=== PATIENT | female | born 1935 | race Caucasian/White ===

== ENCOUNTER → 2018-07-19 07:39 | Outpatient (CLI) | payer OTHER, SELFPAY ==
[2018-07-19 08:56] LABS: Alanine Aminotransferase 25 IU/L (9-52); Aspartate Aminotransferase 26 IU/L (14-36); Cholesterol 158 mg/dL (140-199); HDL Cholesterol 53 mg/dL (40-60); LDL Cholesterol Calculated 86 mg/dL (<100); Triglycerides 94 mg/dL (35-150)
[2018-07-19 09:29] LABS: TSH w/ Reflex to FT4 1.28 uIU/mL (0.47-4.68)
[2018-07-20 17:53] LABS: Vitamin D 25 Hydroxy (D3) 38.2 ng/mL (30.0-100.0)
== END ==
PROVIDERS: PCP Internal Medicine; Visit Provider Internal Medicine
DX: E78.00 Pure hypercholesterolemia, unspecified (principal); M85.80 Other specified disorders of bone density and structure, unspecified site
CPT/HCPCS: 36415; 80061; 82306; 84443; 84450; 84460

== ENCOUNTER → 2018-08-01 13:08 | Outpatient (CLI) | payer OTHER, SELFPAY ==
--- NOTE | 2018-08-01 | DI.RAD.S_ITS ---
This blank DEXA report has been sent in error by the PACS system. The correct and complete report will be forthcoming in 1-2 days. Thank you for your patience and understanding. Dictated by: Elizabeth Selby MD, PhD on 08/01/2018 at 13:53 Approved by: Elizabeth Selby MD, PhD on 08/01/2018 at 13:53
== END ==
PROVIDERS: PCP Internal Medicine; Visit Provider Internal Medicine
DX: M81.0 Age-related osteoporosis without current pathological fracture (principal); E07.9 Disorder of thyroid, unspecified
CPT/HCPCS: 77080

== ENCOUNTER → 2019-05-16 07:03 | Outpatient (CLI) | payer OTHER, SELFPAY ==
[2019-05-16 08:00] LABS: Add Manual Diff / Slide Review NO; Basophils Absolute Auto 0 /uL (0-100); Basophils Percent Auto 1.2 % (0-2); Eosinophils Absolute Auto 100 /uL (0-450); Eosinophils Percent Auto 4.1 % (2-4); Hematocrit 42.3 % (36-46); Hemoglobin 14.2 g/dL (12.0-16.0); Lymphocytes Absolute Auto 1400 /uL (1100-4500); Lymphocytes Percent Auto 37.8 % (25-40); Mean Corpuscular HGB Conc 33.5 % (30-36); Mean Corpuscular Hemoglobin 31.9 PG (26-34); Mean Corpuscular Volume 95.1 fL (80-100); Monocytes Absolute Auto 300 /uL (0-900); Monocytes Percent Auto 7.4 % (3-14); Neutrophils Absolute Auto 1800 /uL (1500-7000); Neutrophils Percent Auto 49.5 % (50-75); Platelet Count 149 X10^3/uL (150-400); Red Blood Cell Count 4.45 X10^6/uL (4.0-5.2); Red Cell Distribution Width 13.1 % (11.6-14.8); White Blood Cell Count 3.6 X10^3/uL (4.5-11.0)
[2019-05-16 08:15] LABS: B Type Natriuretic Peptide < 100 (<100)
[2019-05-16 08:16] LABS: Alanine Aminotransferase 23 IU/L (9-52); Albumin 3.9 g/dL (3.5-5.0); Albumin Globulin Ratio 1.3 (1.0-2.8); Alkaline Phosphatase 53 U/L (38-126); Aspartate Aminotransferase 25 IU/L (14-36); BUN Creatinine Ratio 31.3 (6-22); Bilirubin Total 0.7 mg/dL (0.2-1.3); Blood Urea Nitrogen 25 mg/dL (7-17); Carbon Dioxide 30 mmol/L (22-32); Chloride 105 mmol/L (98-107); Cholesterol 128 mg/dL (140-199); Estimated Glomerular Filt Rate > 60.0 mL/min (>60); Globulin 2.9 g/dL (1.7-4.1); Glucose 86 mg/dL (80-110); HDL Cholesterol 39 mg/dL (40-60); HEMOLYSIS < 15 (0-50); LDL Cholesterol Calculated 72 mg/dL (<100); Potassium 4.2 mmol/L (3.4-5.1); Sodium 140 mmol/L (137-145); Total Protein 6.8 g/dL (6.3-8.2); Triglycerides 83 mg/dL (35-150)
[2019-05-16 08:29] LABS: Vitamin D 25 Hydroxy (D3) 40.1 ng/mL (30.0-100.0)
[2019-05-16 08:37] LABS: Free T3, Triiodothyronine Free 3.46 pg/mL (2.77-5.27); Free T4, Direct Thyroxine 1.29 ng/dL (0.78-2.19)
[2019-05-16 08:50] LABS: Thyroid Stimulating Hormone 0.83 uIU/mL (0.47-4.68)
[2019-05-16 09:19] LABS: Folate 15.1 ng/mL (2.76-20.0); Vitamin B12 422 pg/mL (239-931)
== END ==
PROVIDERS: PCP Internal Medicine; Visit Provider Internal Medicine
DX: L65.9 Nonscarring hair loss, unspecified (principal); R53.82 Chronic fatigue, unspecified; R00.1 Bradycardia, unspecified; E03.9 Hypothyroidism, unspecified; E78.00 Pure hypercholesterolemia, unspecified
CPT/HCPCS: 36415; 80053; 80061; 82306; 82607; 82746; 83880; 84439; 84443; 84481; 85025

== ENCOUNTER → 2019-10-04 07:51 | Outpatient (CLI) | payer OTHER, SELFPAY ==
[2019-10-04 09:52] LABS: Alanine Aminotransferase 17 IU/L (<35); Aspartate Aminotransferase 27 IU/L (14-36); Blood Urea Nitrogen 20 mg/dL (7-17); Calcium 8.9 mg/dL (8.4-10.2); Carbon Dioxide 28 mmol/L (22-32); Chloride 104 mmol/L (98-107); Cholesterol 146 mg/dL (140-199); Estimated Glomerular Filt Rate > 60.0 mL/min (>60); Glucose 81 mg/dL (80-110); HDL Cholesterol 43 mg/dL (40-60); HEMOLYSIS < 15 (0-50); LDL Cholesterol Calculated 89 mg/dL (<100); Potassium 4.3 mmol/L (3.4-5.1); Sodium 139 mmol/L (137-145); Triglycerides 69 mg/dL (35-150)
[2019-10-04 10:17] LABS: TSH w/ Reflex to FT4 0.85 uIU/mL (0.47-4.68)
== END ==
PROVIDERS: PCP Internal Medicine; Visit Provider Internal Medicine
DX: M81.0 Age-related osteoporosis without current pathological fracture (principal); E78.00 Pure hypercholesterolemia, unspecified; E03.9 Hypothyroidism, unspecified
CPT/HCPCS: 36415; 80048; 80061; 84443; 84450; 84460

== ENCOUNTER → 2020-06-09 07:39 | Outpatient (CLI) | payer OTHER, SELFPAY ==
--- NOTE | 2020-06-09 07:41 | DI.US.S_ITS ---
PROCEDURE: US CAROTID DOPPLER BI INDICATIONS: TIA. TECHNIQUE: Color and pulse Doppler interrogation was performed of both carotid systems, with image documentation and velocity measurements. COMPARISON: [facility], , CAROTID ARTERY DOPPLER BIL, 01/10/2014, 9:28. FINDINGS: Stenosis calculations are based on SRU (Society of Radiologists in Ultrasound) criteria. The flow velocities and the arterial waveforms are normal within both carotid arterial systems. The estimated degree of internal carotid artery stenosis is less than 50%. Antegrade flow is confirmed within both vertebral arteries. IMPRESSION: No hemodynamically significant stenosis is seen. No significant change from the prior. Dictated by: Jace Collier M.D. on 06/09/2020 at 9:38 Approved by: Jace Collier M.D. on 06/09/2020 at 9:42
== END ==
PROVIDERS: PCP Student in an Organized Health Care Education/Training Program; Referring Provider Student in an Organized Health Care Education/Training Program; Visit Provider Student in an Organized Health Care Education/Training Program
DX: G45.9 Transient cerebral ischemic attack, unspecified (principal)
CPT/HCPCS: 93880

== ENCOUNTER → 2020-09-21 09:40 | Outpatient (CLI) | payer OTHER, SELFPAY | PROVIDERS: PCP Student in an Organized Health Care Education/Training Program; Referring Provider Student in an Organized Health Care Education/Training Program; Visit Provider Student in an Organized Health Care Education/Training Program | DX: M81.0 Age-related osteoporosis without current pathological fracture (principal); Z78.0 Asymptomatic menopausal state; Z91.89 Other specified personal risk factors, not elsewhere classified | CPT/HCPCS: 77080 ==

== ENCOUNTER 2022-06-27 09:52 | Emergency (ER) | payer OTHER, SELFPAY ==
[2022-06-27 09:59] VITALS: BP 163/75; PULSE 75; RESP 16; TEMP 36.6; O2SAT 96; BMI 28.1
--- NOTE | 2022-06-27 10:07 | ED.EXTPRO ---
HPI - Extremity Problem General Chief complaint: Extremity Problem,Nontraumatic Stated complaint: swelling in right leg/veins - sent by [facility] Time Seen by Provider: 06/27/22 10:04 Source: patient Mode of arrival: Ambulatory History of Present Illness HPI Narrative: Ms. Estrella is an 87-year-old woman with right leg pain. It has been bothering her for just a couple of days. She is concerned that she might have cellulitis. She says that she was told that she had a clot in her leg some years ago and though she received no specific treatment, she says that her estrogen therapy was discontinued because of it. She says there was superficial swelling at that time and cannot tell me for sure whether or not it was a DVT. I see no history of DVT in the chart. 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 She reports no recent injury to her leg but has been much more active than usual. She also has significant varicosities in that right leg that have been present for many many years. She says they hurt intermittently but there hurting much more right now. She denies fever, chills, nausea, vomiting, diarrhea or any other systemic symptoms of illness. She only has a localized tenderness and redness. Related Data Previous Rx's Medication Instructions Recorded levothyroxine 75 mcg tablet 75 mcg PO DAILY #90 tabs 05/18/21 (Synthroid) Allergies Allergy/AdvReac Type Severity Reaction Status Date / Time [id number] Reductase AdvReac Mild SHARP PAIN Verified 06/27/22 10:01 Inhibitor FROM SOME [ODSPQIG-VYS-DIG REDUCTASE STATINS, INHIBITOR] CURRENTLY ON A STATIN Review of Systems Review of Systems Narrative: Complete review of systems is negative other than as noted in the HPI. Patient History Medical History (Updated 06/27/22 @ 10:18 by Tj Temple MD) Allergies (~1953) Alopecia (~2014) Chicken pox Factor V Leiden Frequent UTI (~2017) Hearing loss (~2016) Hypothyroidism (~1995) Measles Migraines (~1957) Osteoarthritis (~2007) Osteopenia (~2006) Peripheral vascular disease (~1979) TIA (transient ischemic attack) (~2004) Varicose veins of both lower extremities Vision disorder Surgical History (System 09/09/21 @ 10:10 by Saira Del Toro) Anesthesia History of appendectomy (~1955) History of cataract removal with insertion of prosthetic lens (~2015) History of vein stripping (~1990) Family History (System 09/09/21 @ 10:10 by Saira Del Toro) Father Diabetes mellitus History of heart disease Hyperlipidemia Stroke Mother Pneumonia Grandfather Cancer Grandmother No problems noted. Social History (System 09/09/21 @ 10:10 by Saira Del Toro) Smoking Status: Never smoker alcohol intake: current (occasionally) Smoking Status: Never smoker alcohol intake frequency: a few times a week Alcohol type: wine Substance Use Type: does not use Exam Narrative Exam Narrative: GENERAL: Alert, cooperative and in no distress. HEAD: Atraumatic. Normocephalic. EYES: Sclera are clear without icterus. Extraocular movements are full. ENT: No rhinorrhea. Oropharynx is moist. Mouth exam is benign. NECK: Supple. Full range of motion. CARDIOVASCULAR: Normal rate and rhythm without murmur gallop or rub. RESPIRATORY: Clear to auscultation. Breath sounds equal bilaterally. No wheezes, rales, or rhonchi. GASTROINTESTINAL: Abdomen soft, non-tender, nondistended. EXTREMITIES: The legs are not edematous. She has normal dorsalis pedis pulses bilaterally. Normal posterior tibial pulses bilaterally. The circumference of the calves is 41 cm measured 10 cm below the tibial tuberosity bilaterally. She has a small area of redness that seems to look like lymphangitis versus superficial thrombophlebitis in the proximal medial anterior aspect of the leg below the knee. This is about 2 cm wide and maybe 10 cm long she has no popliteal tenderness. The area of redness is perhaps very slightly warm. There is a large varicosity on the medial aspect of her thigh that is also somewhat red. It is mildly warm and mildly tender. She has no marked tenderness outside of these areas on her leg. BACK: Normal inspection, no CVA tenderness. NEURO: Nonfocal examination, normal speech, normal gait. SKIN: No rash or erythema of visible areas PSYCH: Normally oriented. Normal range of affect. Appropriate behavior Initial Vital Signs Initial Vital Signs: Vital Signs Temperature 97.8 F 06/27/22 09:59 Pulse Rate 75 06/27/22 09:59 Respiratory Rate 16 06/27/22 09:59 Blood Pressure 163/75 H 06/27/22 09:59 Pulse Oximetry 96 06/27/22 09:59 Oxygen Delivery Method 06/27/22 09:59 Course Vital Signs Vital signs: Vital Signs - 8 hr 06/27/22 09:59 Temperature 97.8 F Pulse Rate 75 Respiratory Rate 16 Blood Pressure 163/75 H Pulse Oximetry 96 Oxygen Delivery Method Room Air MDM - Extremity (Nontraumatic) MDM Narrative Medical decision making narrative: I certainly considered DVT but think this is not likely even though the patient was sent over from urgent care for this possibility. Based on my well score evaluation for DVT she gets-1 point based on the fact that she gets a -2 for an alternative diagnosis being more likely that being a thrombophlebitis. Also she has no documented DVT history. Her only positive point is for the localized tenderness that is mild. I also do not believe she has cellulitis. The area of inflammation is focal and located over superficial blood vessels. She has not had any systemic signs of illness. I think empiric therapy for superficial thrombophlebitis is appropriate with close outpatient follow-up and careful return precautions given as detailed. Discharge Plan Departure Patient Disposition: Home Clinical Impression: Superficial thrombophlebitis Qualifiers: Superficial thrombophlebitis-Involved body area: lower extremity Laterality: right Qualified Code(s): I80.01 - Phlebitis and thrombophlebitis of superficial vessels of right lower extremity Activity Restrictions/Additional Instructions: The weight your leg looks and feels is most consistent with superficial thrombophlebitis. I do not believe you have cellulitis nor do I believe you have a deep vein thrombosis. I think it is safe to treat this as a superficial flung before by this for the next few days. Treatment would include hot packs 2 to 3 times a day for 5-10 minutes at a time. Also take Aleve (naproxen) 2 tablets every 12 hours for the next few days. Call your doctor today to make an appointment later this week for re-evaluation. If at any point you develop fever, cough, shortness of breath, chest pain or dramatically worse swelling in the leg, please return to the emergency department or call your primary care doctor for recheck sooner. Prescriptions: No Action levothyroxine [Synthroid] 75 mcg tablet 75 mcg PO DAILY Qty: 90 3RF Hold Instructions: Trial of cessation Referrals: Anurag Shaw MD [Primary Care Provider] -
== END 2022-06-27 10:32 | disposition home or self-care (01) ==
PROVIDERS: Emergency Provider Family Medicine Addiction Medicine; PCP Student in an Organized Health Care Education/Training Program
DX: I80.01 Phlebitis and thrombophlebitis of superficial vessels of right lower extremity (principal)
CPT/HCPCS: 99281

== ENCOUNTER → 2022-07-13 07:05 | Outpatient (CLI) | payer OTHER, SELFPAY ==
[2022-07-13 08:24] LABS: Hematocrit 39.8 % (36-46); Hemoglobin 13.5 g/dL (12.0-16.0); Mean Corpuscular HGB Conc 33.8 % (30-36); Mean Corpuscular Hemoglobin 31.6 PG (26-34); Mean Corpuscular Volume 93.5 fL (80-100); Platelet Count 151 X10^3/uL (150-400); Red Blood Cell Count 4.26 X10^6/uL (4.0-5.2); Red Cell Distribution Width 13.9 % (11.6-14.8); White Blood Cell Count 4.2 X10^3/uL (4.5-11.0)
[2022-07-13 09:02] LABS: BUN Creatinine Ratio 26.9 (6-22); Blood Urea Nitrogen 21 mg/dL (7-17); Calcium 8.7 mg/dL (8.4-10.2); Carbon Dioxide 28 mmol/L (22-32); Chloride 105 mmol/L (98-107); Estimated Glomerular Filt Rate > 60 mL/min (>60); Glucose 85 mg/dL (80-110); HEMOLYSIS < 15 (0-50); Potassium 4.5 mmol/L (3.4-5.1); Sodium 141 mmol/L (137-145)
[2022-07-13 09:36] LABS: TSH w/ Reflex to FT4 4.96 uIU/mL (0.47-4.68)
[2022-07-13 09:50] LABS: Vitamin B12 378 pg/mL (239-931)
== END ==
PROVIDERS: PCP Student in an Organized Health Care Education/Training Program; Referring Provider Student in an Organized Health Care Education/Training Program; Visit Provider Student in an Organized Health Care Education/Training Program
DX: E03.9 Hypothyroidism, unspecified (principal); E78.2 Mixed hyperlipidemia; M85.80 Other specified disorders of bone density and structure, unspecified site; E53.8 Deficiency of other specified B group vitamins
CPT/HCPCS: 36415; 80048; 82607; 84439; 84443; 85027

== ENCOUNTER → 2022-08-16 09:49 | Outpatient (CLI) | payer OTHER, SELFPAY | PROVIDERS: PCP Student in an Organized Health Care Education/Training Program; Referring Provider Student in an Organized Health Care Education/Training Program; Visit Provider Student in an Organized Health Care Education/Training Program | DX: Z78.0 Asymptomatic menopausal state (principal); M81.0 Age-related osteoporosis without current pathological fracture; Z79.890 Hormone replacement therapy | CPT/HCPCS: 77080 ==

== ENCOUNTER → 2022-12-07 14:46 | Outpatient (CLI) | payer OTHER, SELFPAY ==
--- NOTE | 2022-12-07 14:47 | DI.RAD.S_ITS ---
PROCEDURE: XR ANKLE RT MIN 3V INDICATIONS: Lateral ankle pain w/o trauma TECHNIQUE: 3 views of the ankle were acquired. COMPARISON: None. FINDINGS: Bones: No fractures or dislocations. Ankle mortise is normally aligned. Osteoarthritic changes are noted throughout midfoot and hindfoot. Tiny plantar calcaneal enthesophyte is seen. No suspicious bony lesions. Soft tissues: No tibiotalar joint effusion. Achilles tendon appears normal. IMPRESSION: Agcr-wk-lhcygwar midfoot and hindfoot joint osteoarthritis. No fracture or dislocation. No gross soft tissue abnormalities. Ankle mortise is congruent. Dictated by: Theodore Jarquin M.D. on 12/07/2022 at 16:43 Approved by: Theodore Jarquin M.D. on 12/07/2022 at 16:44
[2022-12-07 15:49] LABS: Hematocrit 40.9 % (36-46); Hemoglobin 13.5 g/dL (12.0-16.0); Mean Corpuscular Volume 93.8 fL (80-100); Platelet Count 157 X10^3/uL (150-400); Red Blood Cell Count 4.36 X10^6/uL (4.0-5.2); Red Cell Distribution Width 13.2 % (11.6-14.8); White Blood Cell Count 4.9 X10^3/uL (4.5-11.0)
[2022-12-07 16:19] LABS: Free T4, Direct Thyroxine 1.02 ng/dL (0.78-2.19)
[2022-12-07 16:25] LABS: BUN Creatinine Ratio 23.8 (6-22); Blood Urea Nitrogen 19 mg/dL (7-17); Calcium 8.5 mg/dL (8.4-10.2); Carbon Dioxide 24 mmol/L (22-32); Chloride 103 mmol/L (98-107); Estimated Glomerular Filt Rate > 60 mL/min (>60); Glucose 117 mg/dL (80-110); HEMOLYSIS < 15 (0-50); Potassium 4.1 mmol/L (3.4-5.1); Sodium 139 mmol/L (137-145)
[2022-12-07 16:32] LABS: NT-proBNP (BNP-Adult 18+) 267 pg/mL (<450)
[2022-12-07 16:34] LABS: Thyroid Stimulating Hormone 4.19 uIU/mL (0.47-4.68)
== END ==
PROVIDERS: PCP Student in an Organized Health Care Education/Training Program; Referring Provider Student in an Organized Health Care Education/Training Program; Visit Provider Student in an Organized Health Care Education/Training Program
DX: M25.571 Pain in right ankle and joints of right foot (principal); I73.9 Peripheral vascular disease, unspecified; E03.8 Other specified hypothyroidism; M19.071 Primary osteoarthritis, right ankle and foot; R40.0 Somnolence
CPT/HCPCS: 36415; 73610; 80048; 83880; 84439; 84443; 85027

== ENCOUNTER → 2023-07-14 08:57 | Outpatient (CLI) | payer OTHER, SELFPAY ==
[2023-07-14 10:38] LABS: Add Manual Diff / Slide Review NO; Basophils Absolute Auto 100 /uL (0-100); Basophils Percent Auto 1.3 % (0-2); Eosinophils Absolute Auto 200 /uL (0-450); Eosinophils Percent Auto 3.9 % (2-4); Hematocrit 41.9 % (36-46); Hemoglobin 14.2 g/dL (12.0-16.0); Lymphocytes Absolute Auto 1400 /uL (1100-4500); Lymphocytes Percent Auto 34.2 % (25-40); Mean Corpuscular HGB Conc 33.9 % (30-36); Mean Corpuscular Hemoglobin 31.7 PG (26-34); Mean Corpuscular Volume 93.4 fL (80-100); Monocytes Absolute Auto 300 /uL (0-900); Monocytes Percent Auto 7.8 % (3-14); Neutrophils Absolute Auto 2200 /uL (1500-7000); Neutrophils Percent Auto 52.8 % (50-75); Platelet Count 159 X10^3/uL (150-400); Red Blood Cell Count 4.49 X10^6/uL (4.0-5.2); Red Cell Distribution Width 13.6 % (11.6-14.8); White Blood Cell Count 4.1 X10^3/uL (4.5-11.0)
[2023-07-14 11:00] LABS: Alanine Aminotransferase 17 IU/L (<35); Albumin 4.1 g/dL (3.5-5.0); Albumin Globulin Ratio 1.3 (1.0-2.8); Alkaline Phosphatase 51 U/L (38-126); Aspartate Aminotransferase 26 IU/L (14-36); Bilirubin Total 0.7 mg/dL (0.2-1.3); Blood Urea Nitrogen 24 mg/dL (7-17); Carbon Dioxide 27 mmol/L (22-32); Chloride 103 mmol/L (98-107); Cholesterol 242 mg/dL (140-199); Estimated Glomerular Filt Rate > 60 mL/min (>60); Globulin 3.2 g/dL (1.7-4.1); Glucose 89 mg/dL (80-110); HDL Cholesterol 49 mg/dL (40-60); HEMOLYSIS < 15 (0-50); LDL Cholesterol Calculated 168 mg/dL (<100); Potassium 4.5 mmol/L (3.4-5.1); Sodium 138 mmol/L (137-145); Total Protein 7.3 g/dL (6.3-8.2); Triglycerides 125 mg/dL (35-150)
[2023-07-14 11:25] LABS: TSH w/ Reflex to FT4 4.18 uIU/mL (0.47-4.68)
== END ==
PROVIDERS: PCP Pediatrics; Referring Provider Pediatrics; Visit Provider Pediatrics
DX: E78.2 Mixed hyperlipidemia (principal); R40.0 Somnolence; M19.90 Unspecified osteoarthritis, unspecified site; M85.80 Other specified disorders of bone density and structure, unspecified site; I73.9 Peripheral vascular disease, unspecified
CPT/HCPCS: 36415; 80053; 80061; 84443; 85025

== ENCOUNTER 2023-11-04 20:06 | Emergency (ER) | payer OTHER, SELFPAY ==
[2023-11-04] VITALS (14 sets, daily range): BP systolic 122–164; BP diastolic 56–82; PULSE 63–72; RESP 14–51; TEMP 36.8; O2SAT 91–98; BMI 27.4
[2023-11-04] MEDS: EPINEPHrine 1 MG/ML 0.3 MG IM (20:06)
[2023-11-04] MEDS: DEXAMETHASONE 10 MG/ML VIAL IV (20:07)
[2023-11-04] MEDS: diphenhydrAMINE 50 MG/ML VIAL 25 MG IV (20:07)
--- NOTE | 2023-11-04 21:05 | ED.ALLEREA ---
HPI - Allergic Reaction General Chief complaint: Allergic Reaction Stated complaint: Allergic reaction Source: patient Mode of arrival: EMS History of Present Illness HPI narrative: 88-year-old female presents with generalized pruritus, diffuse urticaria and swollen tongue began just prior to arrival. No known drug or food allergies. Patient reports mother had a history of shellfish allergy. Patient denies changes in cosmetics, clothing, medication or food. EMS contacted inpatient given Zofran 4 mg IV along with 25 mg diphenhydramine. Patient reports improvement in symptoms. Patient arrives awake, alert, in no apparent distress maintaining her own airway. Related Data Previous Rx's Medication Instructions Recorded trazodone 50 mg tablet 50 mg PO BEDTIME PRN insomnia #90 07/14/23 tabs Allergies Allergy/AdvReac Type Severity Reaction Status Date / Time shellfish derived Allergy Verified 11/17/23 13:03 Jqcetdd-DOF-CmB Reductase AdvReac Mild SHARP PAIN Verified 11/17/23 13:03 Inhibitor FROM SOME [XEEVZJA-BNP-GIR REDUCTASE STATINS, INHIBITOR] CURRENTLY ON A STATIN Review of Systems Review of Systems Narrative: See HPI for pertinent positives, otherwise review of systems negative Patient History Medical History Vitamin D deficiency Vision disorder Alopecia (~2014) Osteoarthritis (~2007) Allergies (~1953) TIA (transient ischemic attack) (~2004) Migraines (~1957) Osteopenia (~2006) Measles Chicken pox Factor V Leiden Hearing loss (~2016) Frequent UTI (~2017) Varicose veins of both lower extremities Peripheral vascular disease (~1979) Surgical History Anesthesia History of vein stripping (~1990) History of appendectomy (~1954) History of cataract removal with insertion of prosthetic lens (~2015) Family History Father Diabetes mellitus History of heart disease Hyperlipidemia Stroke Mother Pneumonia Grandfather Cancer Grandmother No problems noted. Social History Smoking Status: Never smoker alcohol intake: current Smoking Status: Never smoker alcohol intake frequency: 0-2 drinks per day Alcohol type: wine Substance Use Type: does not use Exam Narrative Exam Narrative: General:? Awake, alert, lying comfortably in bed during both exam and interview and in no apparent distress HEENT:? Normocephalic, atraumatic, pupils equal and reactive to light, TMs clear bilateral, trachea midline, neck is supple, normal range of motion, posterior oropharynx clear, generalized tongue swelling/edema Chest:? Normal to inspection, no crepitus, no tenderness Cardiovascular:? 2+ radial bilaterally, regular rhythm/rate. Pulmonary:? Regular respirations, no respiratory distress, lungs clear to auscultation bilateral Abdomen:? Soft, nontender, nondistended, no guarding or rebound tenderness, no hernia Back: ?No midline spinal tenderness, normal range of motion, no step-off deformities :? Exam deferred Skin:? Warm, dry, intact, diffuse urticaria over bilateral upper extremities, back, chest and lower extremities Extremities:? No deformities of bilateral upper/lower extremities, nontender Neuro:? No focal neurological deficits, moving all 4 extremities equally, normal gait, normal speechPsych:? Normal mood, normal affect normal attention Initial Vital Signs Initial Vital Signs: Vital Signs Temperature 98.3 F 11/04/23 20:01 Pulse Rate 68 11/04/23 20:01 Respiratory Rate 18 11/04/23 20:01 Blood Pressure 159/79 H 11/04/23 20:01 Pulse Oximetry 98 11/04/23 20:01 Oxygen Delivery Method Room Air 11/04/23 20:01 Course Orders Ordered: Discontinued Medications Dexamethasone (Dexamethasone 10 Mg/Ml Vial) 10 mg IV NOW ONE Stop: 11/04/23 20:01 Last Admin: 11/04/23 20:07 Dose: 10 mg Documented By: FANNY Diphenhydramine HCl (Diphenhydramine 50 Mg/Ml Vial) 25 mg IV NOW ONE Stop: 11/04/23 20:01 Last Admin: 11/04/23 20:07 Dose: 25 mg Documented By: FANNY Epinephrine HCl (Epinephrine 1 Mg/Ml) 0.3 mg IM NOW ONE Stop: 11/04/23 20:03 Last Admin: 11/04/23 20:06 Dose: 0.3 mg Documented By: FANNY Vital Signs Vital signs: Vital Signs - 8 hr 11/04/23 20:01 Temperature 98.3 F Pulse Rate 68 Respiratory Rate 18 Blood Pressure 159/79 H Pulse Oximetry 98 Oxygen Delivery Method Room Air MDM - Allergic Reaction Differential Diagnosis Differential diagnosis: Likely anaphylaxis, allergic reaction, angioedema and adverse reaction to drug MDM Narrative Medical decision making narrative: Patient presents with allergic reaction versus anaphylaxis/angioedema. Decadron, epinephrine and diphenhydramine given with stable symptoms and vital signs. Patient observed in the emergency department for several hours and patient requests discharge home. Return precautions given. PCP follow-up recommended within 1 week as needed. Patient discharged home in stable condition. Discharge Plan Departure Patient Disposition: Home Clinical Impression: Urticaria Allergic reaction Qualifiers: Encounter type: initial encounter Qualified Code(s): T78.40XA - Allergy, unspecified, initial encounter Angioedema Qualifiers: Encounter type: initial encounter Qualified Code(s): T78.3XXA - Angioneurotic edema, initial encounter Instructions: DI for Hives, DI for General Allergic Reactions Activity Restrictions/Additional Instructions: Take 25 mg of diphenhydramine as directed for symptom relief. Please return to the emergency department immediately if symptoms should change or worsen. Prescriptions: Continued trazodone 50 mg tablet 50 mg PO BEDTIME PRN (Reason: insomnia) Qty: 90 1RF Rx Instructions: 1/2 to 1 pill nightly as needed for insomnia. watch for possible excessive sedation and falls. Referrals: Misha Dennison MD [Primary Care Provider] - As soon as possible Stand Alone Forms: Patient Portal/API
== END 2023-11-04 22:50 | disposition home or self-care (01) ==
PROVIDERS: Emergency Provider Emergency Medicine; PCP Pediatrics
DX: T78.3XXA Angioneurotic edema, initial encounter (principal)
CPT/HCPCS: 96372; 96374; 96375; 99284; J0171; J1100; J1200

== ENCOUNTER 2024-02-07 09:45 | Outpatient (RCR) | payer OTHER, SELFPAY ==
--- NOTE | 2023-12-20 14:17 | PT.OIE ---
Current Diagnoses Unsteadiness on feet (12/20/23) Dizziness and giddiness (12/20/23) Weakness (12/20/23) Past Medical History (Last Reviewed 11/04/23 @ 21:06 by Get Bonner MD) Allergies (~1953) Alopecia (~2014) Chicken pox Factor V Leiden Frequent UTI (~2018) Hearing loss (~2016) Measles Migraines (~1957) Osteoarthritis (~2007) Osteopenia (~2006) Peripheral vascular disease (~1979) TIA (transient ischemic attack) (~2004) Varicose veins of both lower extremities Vision disorder Vitamin D deficiency Past Surgical History (Last Reviewed 11/04/23 @ 21:06 by Get Bonner MD) Anesthesia History of appendectomy (~1954) History of cataract removal with insertion of prosthetic lens (~2015) History of vein stripping (~1990) Visit Care Team Role Provider Type Crystal Chisholm DO Attending Provider Physician Family Provider Primary Care Provider Referring Provider Specialty: [facility] Address: [address] [place] [address], [address], [facility] Email: [email or web address] Physical Therapy Initial Evaluation PT-OP-A Visit Information Start: 12/19/23 12:04 Freq: Status: Active Protocol: Document 12/20/23 09:02 MB (Rec: 12/20/23 09:32 MB [id number]) Out-Patient Physical Therapy Visit Information Visit Information Visit Type Initial Evaluation Visit Note 11/08 before prog note Visit Start Time 09:02 Visit Stop Time 09:45 Visit Number 43 Number of METER REPAIRER Visits 0 Evaluation Information Evaluation Date 12/20/23 PT-OP-B Current Condition Start: 12/19/23 12:04 Freq: Status: Active Protocol: Document 12/20/23 09:02 MB (Rec: 12/20/23 09:32 MB [id number]) Current Condition History of Current Condition Onset Date Since October, about a month or a little longer Current Complaints Pt feels like she is listing and imbalanced History of Current Condition Pt states she wonders if she might have had a little stroke one night in October because she woke up and she couldn't open her left eyelid. She is a retired PT and did a lot of manual work. She has a history of neck pain and she had PT for that in the past. Destinee at this clinic treated her and she had a great experience. Pt lives alone. Her in 2020. She has not had any falls. She is taking 25 mg Trazadone to help her sleep at night. She has been taking it 3-4 weeks Pt describes light-headedness. Pt reports: age-releated weakness and chronic TMD issues and hearing changes and she did not bring hearing aides, ER visit d/t allergic reaction to shell fish Pt denies: numbness and tingling, vision changes, ear pressure, history of concussion, performance of sit -ups, anemia, sinus/allergy issues, trouble swallowing, recent overhead lifting, B12 deficiency, eye pressure changes, roaring/ringing in the ears, whiplash injury, chiropractor treatment, headaches currently, dizziness rolling over in the bed Pt states that she feels imbalanced and more like she is listing and falling over to the left. Treatment Goals Patient/Caregiver Goals Get more balanced and to get stronger and more stable PT-OP-C Subjective Start: 12/19/23 12:04 Freq: Status: Active Protocol: Document 12/20/23 09:02 MB (Rec: 12/20/23 09:32 MB [id number]) OP-PT Subjective Patient Comments Patient Comments See above Patient Questionnaires Dizziness Handicap Inventory DHI Score 34 DHI Functional Impairment 20 to 39% Impaired (Score 20- 39) Other Questionnaire Name and Score FES 49/64 indicating high concern for falling PT-OP-D Balance Start: 12/19/23 12:04 Freq: Status: Active Protocol: Document 12/20/23 09:02 MB (Rec: 12/20/23 14:14 MB [id number]) Balance Tests Other Other Balance Tests Performed Romberg and Romberg with EC normal Pt cannot get into full Tandem position with either foot forward SLS left 4 sec; right 2 sec PT-OP-G Mobility & Gait Start: 12/19/23 12:04 Freq: Status: Active Protocol: Document 12/20/23 09:02 MB (Rec: 12/20/23 14:14 MB [id number]) OP Gait Assessment Comments Gait Comments No LOB with gait, decreased arm swing, pt states she lists to the left occ since October event where she woke up and had trouble opening left eye PT-OP-H Neuro Start: 12/19/23 12:04 Freq: Status: Active Protocol: Document 12/20/23 09:02 MB (Rec: 12/20/23 09:32 MB [id number]) Coordination Evaluation Upper Extremity Tests Left Finger to Nose Test Normal Performance Right Finger to Nose Test Normal Performance Vital Signs Comments Vital Signs Comments Orthostatic assessment with BP and HR in left UE: supine 141 /74, 57; standing cuff does not read in the first attempt, after 1' 153/84, 57. After 1. 5' 145/82, 61. Pt is drinking a lot of caffeinated coffee such as 6-8 cups, some milk and wine one a week. PT-OP-J Posture/Palpation/Skin Start: 12/19/23 12:04 Freq: Status: Active Protocol: Document 12/20/23 09:02 MB (Rec: 12/20/23 14:14 MB [id number]) Posture Evaluation Comments Posture Comments Forward head, rounded shoulders, increased lumbar lordosis, increased thoracic kyphosis PT-OP-K Range of Motion Start: 12/19/23 12:04 Freq: Status: Active Protocol: Document 12/20/23 09:02 MB (Rec: 12/20/23 14:14 MB [id number]) Cervical Spine Range of Motion Cervical Spine Active Testing Position Standing Flexion 40 Extension 20 Rotation Left 40 Rotation Right 40 Lateral Flexion Left 12 Lateral Flexion Right 12 PT-OP-M Strength Start: 12/19/23 12:04 Freq: Status: Active Protocol: Document 12/20/23 09:02 MB (Rec: 12/20/23 14:14 MB [id number]) Shoulder Strength Shoulder Manual Muscle Testing Bilateral Flexion 5 Normal Abduction (C5) 5 Normal Hip Strength Hip Manual Muscle Testing Left Flexion (L2) 3+ Fair+ Right Flexion (L2) 4 Good Knee Strength Knee Manual Muscle Testing Left Flexion (S2) 3+ Fair+ Extension (L3) 3+ Fair+ Right Flexion (S2) 4+ Good+ Extension (L3) 4+ Good+ PT-OP-O Vestibular Start: 12/19/23 12:04 Freq: Status: Active Protocol: Document 12/20/23 09:02 MB (Rec: 12/20/23 14:14 MB [id number]) Vestibular Assessment Visual Testing Smooth Pursuits Horizontal Normal Smooth Pursuits Vertical Normal Saccades Horizontal Normal Gaze Evoked Nystagmus With Fixation Negative Thrust Head Positive Bilateral Convergence Test WNL Spontaneous Nystagmus Negative PT-OP-Q Treatments Start: 12/19/23 12:04 Freq: Status: Active Protocol: Document 12/20/23 09:02 MB (Rec: 12/20/23 14:14 [id number]) Neuro Re-Education Treatment Balance Activities Balance activities Comments Pt is interested in progressing to full balance and strengthening like [place] and so provided handouts for all the exercises and goal will be to progress through them through PT course. Today, only assigned tandem standing and SLS for exercise prescription Self-Care/Home Management Treatment Education Other Education Importance of hydration and decreasing caffeinated fluid intake and increasing non- caffeinated fluid intake and strategies to do this (water before a.m. coffee, half full coffee cups, water down juice to flavor water, electrolytes) PT-OP-T Assessment and Plan Start: 12/19/23 12:04 Freq: Status: Active Protocol: Document 12/20/23 09:02 MB (Rec: 12/20/23 14:14 [id number]) Physical Therapy Assessment Rehab Potential Rehabilitation Potential Good Evaluation Complexity Number of Personal Factors/Comorbidities 1-2 Number of Body Systems Impaired 1-2 Clinical Presentation at Evaluation Evolving Impairments Impairments Activity Tolerance,Balance, Posture,ROM,Soft Tissue Mobility,Strength,Vestibular Goals 3 Impairment Lack of HEP Jail Goal (LTG) Pt will perform progressive HEP with I including VOR, balance, postural, LE and core strengthening exercises to improve quality of life and balance. LTG Duration 8 weeks 2 Impairment Evidence of imbalance Jail Goal (LTG) Pt will perform WNLs on FGA or other standardized balance test to decrease fall risk. LTG Duration 8 weeks 1 Impairment FES score 49/64 Sueding And Buffing Machine Operator Goal (LTG) Pt will present with an improved FES score of no more than 20/64 to reduce fear of falling and fall risk. 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 She states she woke up one more in October and had trouble blinking her left eye and her LLE has felt more weak since then. She also reports listing to the left. She has poor hydration habits at home. She denies falls. Pt presents with postural changes likely d/t advanced age, B positive VOR head thrust with longer lag with left thrust for corrective saccadic, left LE weakness with MMT and imbalance with balance testing . She is able to blink her left eyelid at this time. Pt will benefit from PT to improve VOR function, posture including head turns with gait , balance and strengthening. She is reluctant to be seen 1x /wk and so this may be a challenge for PT. At d/c of PT , community class like [facility] may be helpful for ongoing balance and strengthening program and activity. Pt's goal is to fly to [place] in February to see her daughter and so she is motivated to exercise per her report. PT attempts to check orthostatics and cuff does not read immediately after standing. Physical Therapy Plan Frequency and Duration Frequency of Treatment 1x/Week Duration of treatment (weeks) 8 Plan of Care Start Date 12/20/23 Plan of Care End Date 02/19/24 Therapeutic Interventions Therapeutic Interventions Balance Training,Canalithic Repositioning,Coordination Training,Gait Training,Home Exercise Program,Joint Mobilizations,Manual Therapy, Neuromuscular Re-education, Patient/Caregiver Education, Self-Care/Home Management,Soft Tissue Mobilization,Taping, Therapeutic Activities, Therapeutic Exercises, Vestibular Rehabilitation Modalities Cold Pack/Ice Massage,Electric Stimulation,Hot Packs, Ultrasound Next Visit Focus/Plan Next Note Type Treatment Note Next Visit Plan DVA and FGA, review balance activities for home previously given and progress (likely VOR exercise)
--- NOTE | 2023-12-20 14:17 | PT.OPPOC ---
Physical, Occupational & Speech Therapy At [facility] Current Diagnoses Unsteadiness on feet (12/20/23) Dizziness and giddiness (12/20/23) Weakness (12/20/23) Visit Care Team Role Provider Type Crystal Chisholm DO Attending Provider Physician Family Provider Primary Care Provider Referring Provider Specialty: Family Practice Address: [address] [place] [address], [address], [facility] Email: [email or web address] Plan Of Care PT-OP-T Assessment and Plan Start: 12/19/23 12:04 Freq: Status: Active Protocol: Document 12/20/23 09:02 MB (Rec: 12/20/23 14:14 LINDA [id number]) Physical Therapy Assessment Rehab Potential Rehabilitation Potential Good Evaluation Complexity Number of Personal Factors/Comorbidities 1-2 Number of Body Systems Impaired 1-2 Clinical Presentation at Evaluation Evolving Impairments Impairments Activity Tolerance,Balance, Posture,ROM,Soft Tissue Mobility,Strength,Vestibular Goals 3 Impairment Lack of HEP Senior Care Goal (LTG) Pt will perform progressive HEP with I including VOR, balance, postural, LE and core strengthening exercises to improve quality of life and balance. LTG Duration 8 weeks 2 Impairment Evidence of imbalance Property Underwriter Goal (LTG) Pt will perform WNLs on FGA or other standardized balance test to decrease fall risk. LTG Duration 8 weeks 1 Impairment FES score 49/64 Property Underwriter Goal (LTG) Pt will present with an improved FES score of no more than 20/64 to reduce fear of falling and fall risk. 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 She states she woke up one more in October and had trouble blinking her left eye and her LLE has felt more weak since then. She also reports listing to the left. She has poor hydration habits at home. She denies falls. Pt presents with postural changes likely d/t advanced age, B positive VOR head thrust with longer lag with left thrust for corrective saccadic, left LE weakness with MMT and imbalance with balance testing . She is able to blink her left eyelid at this time. Pt will benefit from PT to improve VOR function, posture including head turns with gait , balance and strengthening. She is reluctant to be seen 1x /wk and so this may be a challenge for PT. At d/c of PT , community class like [facility] may be helpful for ongoing balance and strengthening program and activity. Pt's goal is to fly to [place] in February to see her daughter and so she is motivated to exercise per her report. PT attempts to check orthostatics and cuff does not read immediately after standing. Physical Therapy Plan Frequency and Duration Frequency of Treatment 1x/Week Duration of treatment (weeks) 8 Plan of Care Start Date 12/20/23 Plan of Care End Date 02/19/24 Therapeutic Interventions Therapeutic Interventions Balance Training,Canalithic Repositioning,Coordination Training,Gait Training,Home Exercise Program,Joint Mobilizations,Manual Therapy, Neuromuscular Re-education, Patient/Caregiver Education, Self-Care/Home Management,Soft Tissue Mobilization,Taping, Therapeutic Activities, Therapeutic Exercises, Vestibular Rehabilitation Modalities Cold Pack/Ice Massage,Electric Stimulation,Hot Packs, Ultrasound Next Visit Focus/Plan Next Note Type Treatment Note Next Visit Plan DVA and FGA, review balance activities for home previously given and progress (likely VOR exercise) Plan of Care Dates Plan of Care Start Date 12/20/23 Plan of Care End Date 02/19/24 Electronically Signed by: Madeline Zapata, PT 12/20/23 4729 If you are in agreement with this Plan of Care, please return a signed and dated copy. I have reviewed this Plan of Care and certify that the skilled therapy services above are required to meet the patient?s needs. Physician Signature Date Printed Name and Credentials Clinical Instructor Signature Printed Name and Credentials
--- NOTE | 2024-01-08 14:30 | PT.OTN ---
Current Diagnoses Unsteadiness on feet (01/08/24) Dizziness and giddiness (01/08/24) Weakness (01/08/24) Physical Therapy Treatment Note PT-OP-A Visit Information Start: 12/19/23 12:04 Freq: Status: Active Protocol: Document 01/08/24 13:50 MB (Rec: 01/08/24 14:29 MB [id number]) Out-Patient Physical Therapy Visit Information Visit Information Visit Type Treatment Note Visit Note 12/09 before prog note Pt is 5' late to the appointment and she states that she has to cancel to the next two appointments Visit Start Time 13:50 Visit Stop Time 14:30 Visit Number 2 Number of DOG AND CAT FOOD COOK Visits 0 PT-OP-B Current Condition Start: 12/19/23 12:04 Freq: Status: Active Protocol: Document 12/20/23 09:02 MB (Rec: 12/20/23 09:32 MB [id number]) Current Condition History of Current Condition Onset Date Since October, about a month or a little longer Current Complaints Pt feels like she is listing and imbalanced History of Current Condition Pt states she wonders if she might have had a little stroke one night in October because she woke up and she couldn't open her left eyelid. She is a retired PT and did a lot of manual work. She has a history of neck pain and she had PT for that in the past. Destinee at this clinic treated her and she had a great experience. Pt lives alone. Her in 2020. She has not had any falls. She is taking 25 mg Trazadone to help her sleep at night. She has been taking it 3-4 weeks Pt describes light-headedness. Pt reports: age-releated weakness and chronic TMD issues and hearing changes and she did not bring hearing aides, ER visit d/t allergic reaction to shell fish Pt denies: numbness and tingling, vision changes, ear pressure, history of concussion, performance of sit -ups, anemia, sinus/allergy issues, trouble swallowing, recent overhead lifting, B12 deficiency, eye pressure changes, roaring/ringing in the ears, whiplash injury, chiropractor treatment, headaches currently, dizziness rolling over in the bed Pt states that she feels imbalanced and more like she is listing and falling over to the left. Treatment Goals Patient/Caregiver Goals Get more balanced and to get stronger and more stable PT-OP-C Subjective Start: 12/19/23 12:04 Freq: Status: Active Protocol: Document 01/08/24 13:50 MB (Rec: 01/08/24 14:29 MB [id number]) OP-PT Subjective Patient Comments Patient Comments Pt states that she had a headache for many days after VOR HT testing on the evaluation. She is doing her balance exercises once a day. She has a history of neck issues and migraines. PT-OP-D Balance Start: 12/19/23 12:04 Freq: Status: Active Protocol: Document 12/20/23 09:02 MB (Rec: 12/20/23 14:14 MB [id number]) Balance Tests Other Other Balance Tests Performed Romberg and Romberg with EC normal Pt cannot get into full Tandem position with either foot forward SLS left 4 sec; right 2 sec PT-OP-G Mobility & Gait Start: 12/19/23 12:04 Freq: Status: Active Protocol: Document 12/20/23 09:02 MB (Rec: 12/20/23 14:14 MB [id number]) OP Gait Assessment Comments Gait Comments No LOB with gait, decreased arm swing, pt states she lists to the left occ since October event where she woke up and had trouble opening left eye PT-OP-H Neuro Start: 12/19/23 12:04 Freq: Status: Active Protocol: Document 12/20/23 09:02 MB (Rec: 12/20/23 09:32 MB [id number]) Coordination Evaluation Upper Extremity Tests Left Finger to Nose Test Normal Performance Right Finger to Nose Test Normal Performance Vital Signs Comments Vital Signs Comments Orthostatic assessment with BP and HR in left UE: supine 141 /74, 57; standing cuff does not read in the first attempt, after 1' 153/84, 57. After 1. 5' 145/82, 61. Pt is drinking a lot of caffeinated coffee such as 6-8 cups, some milk and wine one a week. PT-OP-J Posture/Palpation/Skin Start: 12/19/23 12:04 Freq: Status: Active Protocol: Document 12/20/23 09:02 MB (Rec: 12/20/23 14:14 MB [id number]) Posture Evaluation Comments Posture Comments Forward head, rounded shoulders, increased lumbar lordosis, increased thoracic kyphosis PT-OP-K Range of Motion Start: 12/19/23 12:04 Freq: Status: Active Protocol: Document 12/20/23 09:02 MB (Rec: 12/20/23 14:14 MB [id number]) Cervical Spine Range of Motion Cervical Spine Active Testing Position Standing Flexion 40 Extension 20 Rotation Left 40 Rotation Right 40 Lateral Flexion Left 12 Lateral Flexion Right 12 PT-OP-M Strength Start: 12/19/23 12:04 Freq: Status: Active Protocol: Document 12/20/23 09:02 MB (Rec: 12/20/23 14:14 MB [id number]) Shoulder Strength Shoulder Manual Muscle Testing Bilateral Flexion 5 Normal Abduction (C5) 5 Normal Hip Strength Hip Manual Muscle Testing Left Flexion (L2) 3+ Fair+ Right Flexion (L2) 4 Good Knee Strength Knee Manual Muscle Testing Left Flexion (S2) 3+ Fair+ Extension (L3) 3+ Fair+ Right Flexion (S2) 4+ Good+ Extension (L3) 4+ Good+ PT-OP-O Vestibular Start: 12/19/23 12:04 Freq: Status: Active Protocol: Document 12/20/23 09:02 MB (Rec: 12/20/23 14:14 MB [id number]) Vestibular Assessment Visual Testing Smooth Pursuits Horizontal Normal Smooth Pursuits Vertical Normal Saccades Horizontal Normal Gaze Evoked Nystagmus With Fixation Negative Thrust Head Positive Bilateral Convergence Test WNL Spontaneous Nystagmus Negative PT-OP-Q Treatments Start: 12/19/23 12:04 Freq: Status: Active Protocol: Document 01/08/24 13:50 MB (Rec: 01/08/24 14:29 MB [id number]) Neuro Re-Education Treatment Balance Activities HEP eye chart for DVA Comments VOR exercise keeping eyes on E second from the bottom row and cues for horzontal head turns and cues to keep head moving gently and in small range but may need to increase speed DVA testing with eye chart Comments Pt can read to line 9 with head still and she has trouble letting PT move her head horizontally and side to side and so stopped this way of checking DVA HEP for gait balance activities Comments Slide finger against the wall and alternate one rep of forward walking with horizontal head turns, one rep of forward walking with EC and then one rep of tandem gait. Performed each exercise twice and added to HEP and pt to perform one rep of each in a row x5 at home. FGA Comments FGA score is 23/30 with most challenges with gait with horizontal head turns, tandem, gait with eyes closed and she slows gait with stepping over step and turning at end of gait PT-OP-T Assessment and Plan Start: 12/19/23 12:04 Freq: Status: Active Protocol: Document 01/08/24 13:50 MB (Rec: 01/08/24 14:29 MB [id number]) Physical Therapy Assessment Rehab Potential Rehabilitation Potential Good Evaluation Complexity Number of Personal Factors/Comorbidities 1-2 Number of Body Systems Impaired 1-2 Clinical Presentation at Evaluation Evolving Impairments Impairments Activity Tolerance,Balance, Posture,ROM,Soft Tissue Mobility,Strength,Vestibular Goals 3 Impairment Lack of HEP [facility] Goal (LTG) Pt will perform progressive HEP with I including VOR, balance, postural, LE and core strengthening exercises to improve quality of life and balance. LTG Duration 8 weeks 2 Impairment Evidence of imbalance [facility]ci Goal (LTG) Pt will perform WNLs on FGA or other standardized balance test to decrease fall risk. LTG Duration 8 weeks 1 Impairment FES score 49/64 Fci Goal (LTG) Pt will present with an improved FES score of no more than 20/64 to reduce fear of falling and fall risk. LTG Duration 8 weeks Assessment Summary Assessment Further balance and VOR testing today and provided HEP progression. Pt had to miss two PT appointments d/t PT sickness and weather and she must cancel next two appointment for a vacation and so unsure when pt will next have a PT visit. This may be a barrier to POC and will con't PT efforts. Physical Therapy Plan Frequency and Duration Frequency of Treatment 1x/Week Duration of treatment (weeks) 8 Plan of Care Start Date 12/20/23 Plan of Care End Date 02/19/24 Therapeutic Interventions Therapeutic Interventions Balance Training,Canalithic Repositioning,Coordination Training,Gait Training,Home Exercise Program,Joint Mobilizations,Manual Therapy, Neuromuscular Re-education, Patient/Caregiver Education, Self-Care/Home Management,Soft Tissue Mobilization,Taping, Therapeutic Activities, Therapeutic Exercises, Vestibular Rehabilitation Modalities Cold Pack/Ice Massage,Electric Stimulation,Hot Packs, Ultrasound Next Visit Focus/Plan Next Note Type Treatment Note Next Visit Plan Review exercises and progress [place] exercises
--- NOTE | 2024-01-30 11:16 | PT.OTN ---
Current Diagnoses Unsteadiness on feet (01/30/24) Dizziness and giddiness (01/30/24) Weakness (01/30/24) Physical Therapy Treatment Note PT-OP-A Visit Information Start: 12/19/23 12:04 Freq: Status: Active Protocol: Document 01/30/24 10:34 MB (Rec: 01/30/24 11:15 MB [id number]) Out-Patient Physical Therapy Visit Information Visit Information Visit Type Treatment Note Visit Note Pt is late to appointment Visit Start Time 10:34 Visit Stop Time 11:14 Visit Number 3 Number of AUDIT MGR Visits 0 PT-OP-B Current Condition Start: 12/19/23 12:04 Freq: Status: Active Protocol: Document 12/20/23 09:02 MB (Rec: 12/20/23 09:32 MB [id number]) Current Condition History of Current Condition Onset Date Since October, about a month or a little longer Current Complaints Pt feels like she is listing and imbalanced History of Current Condition Pt states she wonders if she might have had a little stroke one night in October because she woke up and she couldn't open her left eyelid. She is a retired PT and did a lot of manual work. She has a history of neck pain and she had PT for that in the past. Destinee at this clinic treated her and she had a great experience. Pt lives alone. Her in 2020. She has not had any falls. She is taking 25 mg Trazadone to help her sleep at night. She has been taking it 3-4 weeks Pt describes light-headedness. Pt reports: age-releated weakness and chronic TMD issues and hearing changes and she did not bring hearing aides, ER visit d/t allergic reaction to shell fish Pt denies: numbness and tingling, vision changes, ear pressure, history of concussion, performance of sit -ups, anemia, sinus/allergy issues, trouble swallowing, recent overhead lifting, B12 deficiency, eye pressure changes, roaring/ringing in the ears, whiplash injury, chiropractor treatment, headaches currently, dizziness rolling over in the bed Pt states that she feels imbalanced and more like she is listing and falling over to the left. Treatment Goals Patient/Caregiver Goals Get more balanced and to get stronger and more stable PT-OP-C Subjective Start: 12/19/23 12:04 Freq: Status: Active Protocol: Document 01/30/24 10:34 MB (Rec: 01/30/24 11:15 MB [id number]) OP-PT Subjective Patient Comments Patient Comments Pt states that she hasn't been doing her exercises as she should be. She is devoting January to improving herself to prepare to go to [place] to visit her daughter. She leaves March 06. She just has one other visit and she is running out of time. She will devote more to her HEP. PT-OP-D Balance Start: 12/19/23 12:04 Freq: Status: Active Protocol: Document 12/20/23 09:02 MB (Rec: 12/20/23 14:14 MB [id number]) Balance Tests Other Other Balance Tests Performed Romberg and Romberg with EC normal Pt cannot get into full Tandem position with either foot forward SLS left 4 sec; right 2 sec PT-OP-G Mobility & Gait Start: 12/19/23 12:04 Freq: Status: Active Protocol: Document 12/20/23 09:02 MB (Rec: 12/20/23 14:14 MB [id number]) OP Gait Assessment Comments Gait Comments No LOB with gait, decreased arm swing, pt states she lists to the left occ since October event where she woke up and had trouble opening left eye PT-OP-H Neuro Start: 12/19/23 12:04 Freq: Status: Active Protocol: Document 12/20/23 09:02 MB (Rec: 12/20/23 09:32 MB [id number]) Coordination Evaluation Upper Extremity Tests Left Finger to Nose Test Normal Performance Right Finger to Nose Test Normal Performance Vital Signs Comments Vital Signs Comments Orthostatic assessment with BP and HR in left UE: supine 141 /74, 57; standing cuff does not read in the first attempt, after 1' 153/84, 57. After 1. 5' 145/82, 61. Pt is drinking a lot of caffeinated coffee such as 6-8 cups, some milk and wine one a week. PT-OP-J Posture/Palpation/Skin Start: 12/19/23 12:04 Freq: Status: Active Protocol: Document 12/20/23 09:02 MB (Rec: 12/20/23 14:14 MB [id number]) Posture Evaluation Comments Posture Comments Forward head, rounded shoulders, increased lumbar lordosis, increased thoracic kyphosis PT-OP-K Range of Motion Start: 12/19/23 12:04 Freq: Status: Active Protocol: Document 12/20/23 09:02 MB (Rec: 12/20/23 14:14 MB [id number]) Cervical Spine Range of Motion Cervical Spine Active Testing Position Standing Flexion 40 Extension 20 Rotation Left 40 Rotation Right 40 Lateral Flexion Left 12 Lateral Flexion Right 12 PT-OP-M Strength Start: 12/19/23 12:04 Freq: Status: Active Protocol: Document 12/20/23 09:02 MB (Rec: 12/20/23 14:14 MB [id number]) Shoulder Strength Shoulder Manual Muscle Testing Bilateral Flexion 5 Normal Abduction (C5) 5 Normal Hip Strength Hip Manual Muscle Testing Left Flexion (L2) 3+ Fair+ Right Flexion (L2) 4 Good Knee Strength Knee Manual Muscle Testing Left Flexion (S2) 3+ Fair+ Extension (L3) 3+ Fair+ Right Flexion (S2) 4+ Good+ Extension (L3) 4+ Good+ PT-OP-O Vestibular Start: 12/19/23 12:04 Freq: Status: Active Protocol: Document 12/20/23 09:02 MB (Rec: 12/20/23 14:14 MB [id number]) Vestibular Assessment Visual Testing Smooth Pursuits Horizontal Normal Smooth Pursuits Vertical Normal Saccades Horizontal Normal Gaze Evoked Nystagmus With Fixation Negative Thrust Head Positive Bilateral Convergence Test WNL Spontaneous Nystagmus Negative PT-OP-Q Treatments Start: 12/19/23 12:04 Freq: Status: Active Protocol: Document 01/30/24 10:34 MB (Rec: 01/30/24 11:15 MB [id number]) Therapeutic Exercises Sitting Exercises STS Comments In chair and no hand support LAQs Side bilateral Resistance 2 lb ankle weights Reps/Minutes 30 reps x2 Standing Exercises Standing behind chair Comments 10 reps today holding onto chair Standing heel raises Side bilateral Resistance 2 lb ankle weights Equipment Used Chair at side, one finger support Reps/Minutes 30 reps Standing hamstring curl Side bilateral Resistance 2 lb ankle weights Equipment Used Chair in front Reps/Minutes 30 reps x2 Standing hip abduction Side bilateral Resistance 2 lb ankle weights Equipment Used Chair in front Reps/Minutes 30 reps x2 Neuro Re-Education Treatment Balance Activities Toe and heel walking Comments To perform near wall at home Heel toe walking backwards Comments Perform in hallway, performs well and slower next to ballet bar in gym SLS Comments B, up to 30-60 sec at home and she can stand up to 5 sec on left leg today, beside chair, 5 sec on right leg as well today Tandem standing at chair Comments B, up to 1' each leg for HEP and pt can perform 16 sec with left foot behind; 8 sec with right foot behind HEP for gait balance activities Comments Slide finger against the wall and alternate one rep of forward walking with horizontal head turns, one rep of forward walking with EC and then one rep of tandem gait. Performed each exercise twice and added to HEP and pt to perform one rep of each in a row x5 at home. PT-OP-T Assessment and Plan Start: 12/19/23 12:04 Freq: Status: Active Protocol: Document 01/30/24 10:34 MB (Rec: 01/30/24 11:15 MB [id number]) Physical Therapy Assessment Rehab Potential Rehabilitation Potential Good Evaluation Complexity Number of Personal Factors/Comorbidities 1-2 Number of Body Systems Impaired 1-2 Clinical Presentation at Evaluation Evolving Impairments Impairments Activity Tolerance,Balance, Posture,ROM,Soft Tissue Mobility,Strength,Vestibular Goals 3 Impairment Lack of HEP Halfway Goal (LTG) Pt will perform progressive HEP with I including VOR, balance, postural, LE and core strengthening exercises to improve quality of life and balance. LTG Duration 8 weeks 2 Impairment Evidence of imbalance Cardio Tech Goal (LTG) Pt will perform WNLs on FGA or other standardized balance test to decrease fall risk. LTG Duration 8 weeks 1 Impairment FES score 49/64 Halfway Goal (LTG) Pt will present with an improved FES score of no more than 20/64 to reduce fear of falling and fall risk. LTG Duration 8 weeks Assessment Summary Assessment Overall, pt has demonstrated low compliance with PT recommendations including PT frequency and plan, performance of HEP and hydration. She con't to state that her plan is for a good home program to perform before leaving for [facility] yet she is not performing exercises much at home. Mounika performed today. She wishes to d/c next treatment date. Physical Therapy Plan Frequency and Duration Frequency of Treatment 1x/Week Duration of treatment (weeks) 8 Plan of Care Start Date 12/20/23 Plan of Care End Date 02/19/24 Therapeutic Interventions Therapeutic Interventions Balance Training,Canalithic Repositioning,Coordination Training,Gait Training,Home Exercise Program,Joint Mobilizations,Manual Therapy, Neuromuscular Re-education, Patient/Caregiver Education, Self-Care/Home Management,Soft Tissue Mobilization,Taping, Therapeutic Activities, Therapeutic Exercises, Vestibular Rehabilitation Modalities Cold Pack/Ice Massage,Electric Stimulation,Hot Packs, Ultrasound Next Visit Focus/Plan Next Note Type Discharge Summary Next Visit Plan Review exercises as needed
--- NOTE | 2024-02-07 10:30 | PT.OTN ---
Current Diagnoses Unsteadiness on feet (02/07/24) Dizziness and giddiness (02/07/24) Weakness (02/07/24) Physical Therapy Treatment Note PT-OP-A Visit Information Start: 12/19/23 12:04 Freq: Status: Active Protocol: Document 02/07/24 09:49 MB (Rec: 02/07/24 10:22 MB [id number]) Out-Patient Physical Therapy Visit Information Visit Information Visit Type Treatment Note Visit Start Time 09:49 Visit Stop Time 10:29 Visit Number 4 Number of NUTRITION COUNSELOR Visits 0 PT-OP-B Current Condition Start: 12/19/23 12:04 Freq: Status: Active Protocol: Document 12/20/23 09:02 MB (Rec: 12/20/23 09:32 MB [id number]) Current Condition History of Current Condition Onset Date Since October, about a month or a little longer Current Complaints Pt feels like she is listing and imbalanced History of Current Condition Pt states she wonders if she might have had a little stroke one night in October because she woke up and she couldn't open her left eyelid. She is a retired PT and did a lot of manual work. She has a history of neck pain and she had PT for that in the past. Destinee at this clinic treated her and she had a great experience. Pt lives alone. Her in 2020. She has not had any falls. She is taking 25 mg Trazadone to help her sleep at night. She has been taking it 3-4 weeks Pt describes light-headedness. Pt reports: age-releated weakness and chronic TMD issues and hearing changes and she did not bring hearing aides, ER visit d/t allergic reaction to shell fish Pt denies: numbness and tingling, vision changes, ear pressure, history of concussion, performance of sit -ups, anemia, sinus/allergy issues, trouble swallowing, recent overhead lifting, B12 deficiency, eye pressure changes, roaring/ringing in the ears, whiplash injury, chiropractor treatment, headaches currently, dizziness rolling over in the bed Pt states that she feels imbalanced and more like she is listing and falling over to the left. Treatment Goals Patient/Caregiver Goals Get more balanced and to get stronger and more stable PT-OP-C Subjective Start: 12/19/23 12:04 Freq: Status: Active Protocol: Document 02/07/24 09:49 MB (Rec: 02/07/24 10:22 MB [id number]) OP-PT Subjective Patient Comments Patient Comments Pt tends to work the exercises throughout the day as she cannot find time to get them all done at one time. She got out the ankle weights and used them a couple of times. Her trip to [facility] is March 06. PT-OP-D Balance Start: 12/19/23 12:04 Freq: Status: Active Protocol: Document 12/20/23 09:02 MB (Rec: 12/20/23 14:14 MB [id number]) Balance Tests Other Other Balance Tests Performed Romberg and Romberg with EC normal Pt cannot get into full Tandem position with either foot forward SLS left 4 sec; right 2 sec PT-OP-G Mobility & Gait Start: 12/19/23 12:04 Freq: Status: Active Protocol: Document 12/20/23 09:02 MB (Rec: 12/20/23 14:14 MB [id number]) OP Gait Assessment Comments Gait Comments No LOB with gait, decreased arm swing, pt states she lists to the left occ since October event where she woke up and had trouble opening left eye PT-OP-H Neuro Start: 12/19/23 12:04 Freq: Status: Active Protocol: Document 12/20/23 09:02 MB (Rec: 12/20/23 09:32 MB [id number]) Coordination Evaluation Upper Extremity Tests Left Finger to Nose Test Normal Performance Right Finger to Nose Test Normal Performance Vital Signs Comments Vital Signs Comments Orthostatic assessment with BP and HR in left UE: supine 141 /74, 57; standing cuff does not read in the first attempt, after 1' 153/84, 57. After 1. 5' 145/82, 61. Pt is drinking a lot of caffeinated coffee such as 6-8 cups, some milk and wine one a week. PT-OP-J Posture/Palpation/Skin Start: 12/19/23 12:04 Freq: Status: Active Protocol: Document 12/20/23 09:02 MB (Rec: 12/20/23 14:14 MB [id number]) Posture Evaluation Comments Posture Comments Forward head, rounded shoulders, increased lumbar lordosis, increased thoracic kyphosis PT-OP-K Range of Motion Start: 12/19/23 12:04 Freq: Status: Active Protocol: Document 12/20/23 09:02 MB (Rec: 12/20/23 14:14 MB [id number]) Cervical Spine Range of Motion Cervical Spine Active Testing Position Standing Flexion 40 Extension 20 Rotation Left 40 Rotation Right 40 Lateral Flexion Left 12 Lateral Flexion Right 12 PT-OP-M Strength Start: 12/19/23 12:04 Freq: Status: Active Protocol: Document 12/20/23 09:02 MB (Rec: 12/20/23 14:14 MB [id number]) Shoulder Strength Shoulder Manual Muscle Testing Bilateral Flexion 5 Normal Abduction (C5) 5 Normal Hip Strength Hip Manual Muscle Testing Left Flexion (L2) 3+ Fair+ Right Flexion (L2) 4 Good Knee Strength Knee Manual Muscle Testing Left Flexion (S2) 3+ Fair+ Extension (L3) 3+ Fair+ Right Flexion (S2) 4+ Good+ Extension (L3) 4+ Good+ PT-OP-O Vestibular Start: 12/19/23 12:04 Freq: Status: Active Protocol: Document 12/20/23 09:02 MB (Rec: 12/20/23 14:14 MB [id number]) Vestibular Assessment Visual Testing Smooth Pursuits Horizontal Normal Smooth Pursuits Vertical Normal Saccades Horizontal Normal Gaze Evoked Nystagmus With Fixation Negative Thrust Head Positive Bilateral Convergence Test WNL Spontaneous Nystagmus Negative PT-OP-Q Treatments Start: 12/19/23 12:04 Freq: Status: Active Protocol: Document 02/07/24 09:49 MB (Rec: 02/07/24 10:22 MB [id number]) Therapeutic Exercises Other Exercises Extensive exercise review Comments PT and pt review her HEP in depth today and how to con't going forward PT-OP-T Assessment and Plan Start: 12/19/23 12:04 Freq: Status: Active Protocol: Document 02/07/24 09:49 MB (Rec: 02/07/24 10:22 MB [id number]) Physical Therapy Assessment Goals 3 Impairment Lack of HEP Environmental Health Specialist Goal (LTG) Pt will perform progressive HEP with I including VOR, balance, postural, LE and core strengthening exercises to improve quality of life and balance. 02/07/24: Pt is performing the eye chart VOR exercises once a day, [place] LE strengthening and balance exercises about once a day (not all of the exercises), walking balance exercises about once a day. LTG Duration 8 weeks 2 Impairment Evidence of imbalance Mcfp Goal (LTG) Pt will perform WNLs on FGA or other standardized balance test to decrease fall risk. 02/07/24: FGA score is 25/30, which is normal LTG Duration 8 weeks 1 Impairment FES score 49/64 Mcfp Goal (LTG) Pt will present with an improved FES score of no more than 20/64 to reduce fear of falling and fall risk. 02/07/24: /64, improvement since evaluation LTG Duration 8 weeks Assessment Summary Assessment Pt has met FGA goal and she has progressed towards exercise and FES goals since starting PT. She is busy preparing for her trip to [place] and will con't HEP including VOR, static and dynamic balance exercises as well as LE strengthening exercises. Discussed benefits of joining the next [facility] balance class when she returns in March.
== END 2024-02-16 13:19 ==
LOC: PHYS 09:45
PROVIDERS: Family Provider Family Medicine; PCP Family Medicine; Referring Provider Family Medicine; Visit Provider Family Medicine
DX: R42 Dizziness and giddiness (principal); R26.81 Unsteadiness on feet; R53.1 Weakness
CPT/HCPCS: 97110; 97112; 97161; 97535

== ENCOUNTER → 2024-04-18 06:54 | Outpatient (CLI) | payer OTHER, SELFPAY ==
[2024-04-18 08:11] LABS: Add Manual Diff / Slide Review NO; Basophils Absolute Auto 100 /uL (0-100); Basophils Percent Auto 1.2 % (0-2); Eosinophils Absolute Auto 200 /uL (0-450); Eosinophils Percent Auto 5.7 % (2-4); Hematocrit 39.4 % (36-46); Lymphocytes Absolute Auto 1300 /uL (1100-4500); Mean Corpuscular HGB Conc 32.9 % (30-36); Mean Corpuscular Hemoglobin 31.2 PG (26-34); Mean Corpuscular Volume 94.6 fL (80-100); Monocytes Absolute Auto 300 /uL (0-900); Monocytes Percent Auto 7.2 % (3-14); Neutrophils Absolute Auto 2300 /uL (1500-7000); Neutrophils Percent Auto 55.9 % (50-75); Platelet Count 174 X10^3/uL (150-400); Red Blood Cell Count 4.17 X10^6/uL (4.0-5.2); Red Cell Distribution Width 13.3 % (11.6-14.8); White Blood Cell Count 4.2 X10^3/uL (4.5-11.0)
[2024-04-18 08:39] LABS: Alanine Aminotransferase 19 IU/L (<35); Albumin 3.8 g/dL (3.5-5.0); Albumin Globulin Ratio 1.5 (1.0-2.8); Alkaline Phosphatase 60 U/L (38-126); Aspartate Aminotransferase 29 IU/L (14-36); BUN Creatinine Ratio 24.1 (6-22); Bilirubin Total 0.8 mg/dL (0.2-1.3); Blood Urea Nitrogen 19 mg/dL (7-17); Calcium 8.7 mg/dL (8.4-10.2); Carbon Dioxide 28 mmol/L (22-32); Chloride 110 mmol/L (98-107); Cholesterol 124 mg/dL (140-199); Estimated Glomerular Filt Rate > 60 mL/min (>60); Globulin 2.6 g/dL (1.7-4.1); Glucose 85 mg/dL (80-110); HDL Cholesterol 48 mg/dL (40-60); HEMOLYSIS < 15 (0-50); LDL Cholesterol Calculated 61 mg/dL (<100); Potassium 4.3 mmol/L (3.4-5.1); Sodium 141 mmol/L (137-145); Total Protein 6.4 g/dL (6.3-8.2); Triglycerides 76 mg/dL (35-150)
[2024-04-18 09:06] LABS: TSH w/ Reflex to FT4 0.47 uIU/mL (0.47-4.68)
== END ==
LOC: LAB 06:57
PROVIDERS: Family Provider Family Medicine; PCP Family Medicine; Referring Provider Family Medicine; Visit Provider Family Medicine
DX: I25.2 Old myocardial infarction (principal); E03.8 Other specified hypothyroidism
CPT/HCPCS: 36415; 80053; 80061; 84443; 85025

== ENCOUNTER → 2024-12-30 | Outpatient (CLI) | payer OTHER, SELFPAY ==
--- NOTE | 2024-12-30 | PATH_ITS ---
[facility] Accession Number: [id number] No. of containers..01 Tissue . 01 Material submitted: . breast - LEFT BREAST MASS 2:00 7CMFN . 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 Combined total [place] histologic score: 6 out of 9 possible (tubule formation 3/3, nuclear pleomorphism 2/3, and mitotic index 1/3). Overall grade: Grade 2/3 (intermediate grade). In situ carcinoma: Not identified. Lymphovascular invasion: Not identified. Microcalcifications: Not seen. Greatest linear extent of invasive carcinoma: 4 mm as measured from the glass slide. Predicative markers: Estrogen and Progesterone Receptors: Positive, HER2 expression by immunohistochemistry: Equivocal 2+, FISH has been ordered and result will follow in an addendum. Proliferation marker Ki67 is low, please see microscopic description for details. V 01/03/2025 1033 Local . 01 Comment: As part of ongoing quality assurance engineer, this case is also reviewed by Dr. Mya Kidd, who agrees with the interpretation. . Results were called to Nellie Jara RN, on 01/02/2025 at 3:40 p.m. . 01 Electronically signed: . Marleny Prieto MD, Pathologist NPI- [id number] . 01 Gross description: . Received is one formalin-filled container labeled with the patient's name labeled Lt. breast mass designated 2 o'clock 7 cm FN. The specimen is received with plastic filter in container and sample loose in container and consists of multiple yellow-rodgers pieces of sof tissue which range in size from less thans 0.1 cm to 1.5 x 0.2 x 0.2 cm. All fragments are totally submitted in cassette A1. . Possible collection date per requisition 12/30/2024. Possible collection time per container 10:05 a.m. Time is formalin not provided. Cold ischemic time cannot be calculated. Total fixation time approximately 17 hours. ([id number]) /MAC 12/31/2024 0602 Local . 01 Microscopic: . P63 and Myosin immunostains are performed and confirm the absence of basal/myoepithelial cell layer on the invasive carcinoma. E-cadherin immunostain is performed and shows uniform strong positivity supporting ductal differentiation of this invasive carcinoma. GATA3 is positive, supporting breast origin (as no definite ductal carcinoma in situ is seen). . Predictive marker immunohistochemical studies are performed on block A1 with the invasive carcinoma showing the following results: . Estrogen Receptor (SP1): Positive (91-100%, strong intensity). Progesterone Receptor (1E2): Positive (11-20%, intermediate intensity). Her2 (4B5): Equivocal (2+), HER2 by FISH will be performed at [facility], and results will follow in an addendum report. Ki-67 (MIB1): Less than 5%, low range. . Internal controls for ER and [place] are positive. Cold ischemic time is <1 minute. The scoring criteria for breast biomarkers by immunohistochemistry is based on the ASCO/CAP guidelines (Alejandrina AC et al, J Clin Oncol: 2017May 08;36(20):9755-1586 and My ME et al, Arch Pathol Lab Med: 2009;134(6):907-22). Deparaffinized sections of formalin fixed tissue (along with appropriate positive controls) are incubated with the above antibody(s). Using the automated [place] stainer, tissue is incubated with the designated antibody which is then localized by a non-biotin, dual polymer detection system. The external controls are reviewed for appropriate reactivity and found to be adequate. Results on the target cell population are indicated above. These tests have not been validated on decalcified tissue. . This test was developed and the performance characteristics were validated by [employer]. It has not been cleared or approved by the U.S. Food and Drug Administration. . 01 Pathologist provided ICD-10: C50.912 . 01 CPT . 824704, A91813, L33973, 232472, 907465, 738591, 109986 Performed at: [address] [place] [address] [facility] [place] [facility]– [place], [place], [place] [id number] MD Abiel Bocanegra MD Phone: [phone]
--- NOTE | 2024-12-30 09:04 | DI.MG.S_ITS ---
MM diagnostic mammo [id number]: 12/30/2024. BI-RADS: None CLINICAL: 89-year old female for left diagnostic mammogram that is a follow-up to diagnostic, bilateral, digital, tomosynthesis on 12/10/2024. No Tyrer-Cuzick risk score calculation due to patient's age being over 85 years old. PRIOR EXAMS: 12/10/2024. 12/10/2024. MAMMOGRAPHY TECHNIQUE: Current study was also evaluated with a Computer Aided Detection (CAD) system. DENSITY Left: A. The breasts are almost entirely fatty. MAMMOGRAPHY FINDINGS Left There is a biopsy marker in targeted location. Biopsy marker present on the left. IMPRESSION: Left * Biopsy marker present. OVERALL ASSESSMENT CATEGORY BI-RADS None: This exam requires no BI-RADS. ELECTRONICALLY SIGNED: Alfonso Clemons MD on 12/30/2024 at 05:10:11 PM Interpreting Station ID: [id number]
--- NOTE | 2024-12-30 09:28 | DI.US.S_ITS ---
Patient Name: MELVIN MENDOZA date: 1935 Sex: F Attending Physician: Phan Indications: Date: 01/03/2025 16:15 At the request of: MARYLOU WHITLOCK Procedure: US bx breast perc w vac device US bx breast perc w vac device: 12/30/2024. Rad-Path Correlation: Concordant Pathology Classification: Invasive SEE ADDENDUM AT END OF THIS REPORT SEE UPDATED PATHOLOGY AT END OF THIS REPORT CLINICAL: 89-year old female for right procedure and left diagnostic mammogram that resulted from ultrasound, left on 12/10/2024. No Tyrer-Cuzick risk score calculation due to patient's age being over 85 years old. PRIOR EXAMS: 12/10/2024. CONSENT Risks including but not limited to bleeding and infection, benefits and alternatives were discussed with the patient. The patients agreed to the procedure, reported no allergy to local anesthesia and signed the consent form. Risks including but not limited to bleeding and infection, benefits and alternatives were discussed with the patient. The patient agreed to the procedure and signed informed consent. Time out procedure was used. ROUTINE Left: Patient positioned in the supine or supine-oblique position, prepped and draped in the usual manner using sterile technique. TECHNIQUE Left Breast: Upper Outer at 2:00, 7 cm from nipple, Mid-Depth: Continued Report - Page 2 of 3 Patient Name: MELVIN MENDOZA date: 1935 Sex: F Attending Physician: Phan Indications: Date: 01/03/2025 16:15 At the request of: MARYLOU WHITLOCK Procedure: US bx breast perc w vac device Morphology: Irregular spiculated mass with non-parallel orientation measurin.8cm X 1.3cm X 1.1cm. Procedure: Ultrasound-guided vacuum-assisted biopsy of a mass. Device: 14-gauge vacuum-assisted biopsy instrument. BD EleVation(TM) 14g. Approach: Lateral. Anesthesia: Local anesthesia obtained using 1%-lidocaine with epinephrine buffered with sodium bicarbonate. Skin Entry: Incision with #11 blade. Passes: 5. Specimens: 5. Targeting Confirmation: Real-time Observation and Post-Procedure Imaging. Rad/Path Correlation: Pending receipt of pathology report. Conclusion: Ultrasound-guided Vacuum-assisted biopsy with post-procedure CC and LM mammographic views, Left Breast: Upper Outer at 2:00, 7 cm from nipple, Mid- Depth COMPLICATIONS: No complications were encountered while the patient was in our department. DISPOSITION The patient left our department in good condition with aftercare instructions and urged to contact us should any further problem arise. SUMMARY Left Breast: Upper Outer at 2:00, 7 cm from nipple, Mid-Depth: Ultrasound-guided vacuum-assisted biopsy of a mass. PATHOLOGY Left Breast: Upper Outer at 2:00, 7 cm from nipple, Mid-Depth: Radiologist-Pathologist Correlation: Pending receipt of pathology report. SEE UPDATED RECOMMENDATIONS IN ADDENDUM AT END OF THIS REPORT ELECTRONICALLY SIGNED: Alfonso Clemons MD on 12/30/2024 at 05:09:53 PM ADDENDA: * ADDENDUM: Pathology demonstrates Invasive Ductal Carcinoma. Please see full pathology report for details. RAD-PATH CORRELATION: Concordant. Rad-Path Correlation changed from Pending. ELECTRONICALLY SIGNED: Raul Keith M.D. on 01/03/2025 at 04:15:15 PM. Continued Report - Page 3 of 3 Patient Name: MELVIN MENDOZA date: 1935 Sex: F Attending Physician: Phan Indications: Date: 01/03/2025 16:15 At the request of: MARYLOU WHITLOCK Procedure: US bx breast perc w vac device UPDATED PATHOLOGY Left Breast: Upper Outer at 2:00, 7 cm from nipple, Mid-Depth: Invasive Breast Carcinoma (IBC): Invasive Ductal Carcinoma. Radiologist-Pathologist Correlation: Concordant. UPDATED RECOMMENDATIONS Left * Consultation with surgeon and oncologist. Appointment for this consult to be scheduled as soon as possible. Interpreting Station ID: [id number]
== END ==
LOC: US 09:04
PROVIDERS: Family Provider Family Medicine; PCP Family Medicine; Referring Provider Family Medicine; Visit Provider Family Medicine
DX: C50.412 Malignant neoplasm of upper-outer quadrant of left female breast (principal); R92.8 Other abnormal and inconclusive findings on diagnostic imaging of breast; R92.312 Mammographic fatty tissue density, left breast; Z17.0 Estrogen receptor positive status [ER+]
CPT/HCPCS: 19083; 77065

== ENCOUNTER 2025-03-04 08:24 | Day surgery (SDC) | payer OTHER, SELFPAY ==
[2025-03-03 09:28] VITALS: BMI 30.3
[2025-03-04] VITALS (9 sets, daily range): BP systolic 137–168; BP diastolic 63–76; PULSE 53–60; RESP 10–16; TEMP 36.2–36.6; O2SAT 93–97; BMI 28.9
--- NOTE | 2025-03-04 | PATH_ITS ---
[facility] Accession Number: [id number] No. of containers..01 Tissue . 01 Material submitted: . breast - WOUND CAVITY LEFT BREAST . 01 Diagnosis: LEFT BREAST, WOUND CAVITY, EXCISION: Benign breast parenchyma with surgical site changes, suture granulomas, hematoma, and focal features of seroma. No residual in situ or invasive carcinoma identified. Overlying skin with no diagnostic abnormality. [facility] 03/10/2025 1337 Local . 01 Comment: As part of routing director supplier quality, Dr. Kidd has reviewed disability representative slides from this case and agrees there is no evidence of residual neoplasm. . 01 Electronically signed: . Jaren Spencer MD, PhD, Pathologist NPI- [id number] . 01 Gross description: . Received: In formalin with two identifiers and wound cavity left breast. Specimen: An oriented left lumpectomy. Weight: 28 grams. Measurement: 5.2 cm medial to lateral, 4.5 cm anterior to posterior, 3.0 cm superior to inferior. Skin ellipse: Present. Measuring 5.1 x 1.3 cm with rodgers, irregular skin consistent with previous scar and areas of sloughing epidermis. Wire: Absent. Margins: The skin is oriented by the surgeon with a short suture designating cephalad, long suture lateral, and skin anterior per the requisition. Inked inferior blue, lateral orange, medial yellow, posterior black, superior red, and skin is anterior. An erythematous smooth-walled cavity consistent with seroma is identified at both the superior and inferior margins; however, the fibroadipose tissue is intact across the posterior portion of the specimen. The seroma cavity is fully patent through the specimen from superior to inferior and measures 2.7 x 2.0 x 1.5 cm. Sliced: From medial to lateral into 10 slices. Lesion: Seroma cavity and associated surgical site changes identified. Description: The aforementioned seroma cavity contains hemorrhagic material and the adjacent fat is pale yellow and slightly firm, consistent with surgical site changes. No discrete lesion is grossly identified. Measurement: The seroma cavity (measured above) and associated surgical site changes all measure 5.2 x 2.9 x 2.6 cm. Slices involved: The seroma cavity is within slices 1-9 and surgical site changes are identified within all 10 slices. Distance to margins: The seroma cavity is open to both the superior and inferior margins, is 0.3 cm from the posterior margin, 0.5 cm from the medial margin, and greater than 1 cm from all remaining margins. The surgical site changes grossly involve all margins except skin at 0.5 cm. Other: The remaining cut surfaces are yellow to white fibroadipose tissue with less than 10% fibrous tissue. Fixation: The specimen was removed on 03/04/2025, time not provided. Cold ischemic time cannot be calculated. Total fixation time is approximately 54 hours following additional fixation. [employer] sections are submitted as follows: . A1: Rep slice 1, yellow margin perpendicular. A2: Rep slice 2. A3: Rep slice 3. A4: Rep slice 4. A5: Rep slice 5. A6-A7: Composite slice 6. A8-A9: Composite slice 7. A10: Rep slice 8. A11: Rep slice 9. A12: Rep slice 10, orange margin perpendicular. Note: The entire anterior portion of the seroma cavity is submitted. ([id number]) /MRV 03/05/20252009 Local . 01 Pathologist provided ICD-10: Z85.3 . 01 CPT . 807177 Specimen Comment: A courtesy copy of this report has been sent to [facility] Pathology Performed at: [address] [facility], [place], [place] [id number] MD Abiel Bocanegra MD Phone: [phone]
--- NOTE | 2025-03-04 10:04 | PM.PREOP ---
Pre-operative Note Interval Note History & Physical reviewed/Exam performed by Physician: Yes Changes to H&P: Yes H&P completed within 30 days and has changed as indicated here:: no change ASA Class (for procedural sedation): II
--- NOTE | 2025-03-04 10:46 | SUR.OPER ---
Supine on padded OR bed, head on pillow, left arm secured on padded arm board at <90 degrees abduction, right arm padded and tucked, legs uncrossed, safety belt at thigh, tape over blanket over lower legs.
[2025-03-04] MEDS: BUPIVACAINE 0.5% (PF) 30 ML VIAL INJ (10:51)
--- NOTE | 2025-03-04 11:29 | PM.OP.1 ---
Operative Date/Time/Diagnoses Date of procedure: 03/04/25 Time of procedure: 11:00 Pre-op diagnosis: Incompletely excised breast cancer Post-op diagnosis: same Procedure & Clinicians Procedure: Wound re-excision left breast Same procedure as scheduled: Yes Indications: Incompletely excised left breast cancer Surgeon: Ignacio Winn Click Yes if Unassisted: Yes Anesthesia Type: General Operative Notes Findings: Original wound capsule excised with margin of normal tissue. Closure Type: primary Specimen(s): other (Left breast wound capsule with margin of normal tissue.) Estimated Blood Loss (mL): 10 Procedure in detail: After obtaining informed consent properly identifying the patient the patient was transported to the operating room and was placed on the table in supine position. LMA general anesthesia was induced and the left breast was prepped and draped in the usual sterile manner. Time-out protocol was observed. The original closure, as the microscopically positive margin was anterior, was included in a 1.5 x 4 cm surgeons ellipse with a 15 blade. This was carried with electrocautery into the subcutaneous adipose. The wound capsule was then circumferentially excised, sharply, with the electrocautery leaving 5-8 mm of normal-appearing tissue on the external surface of the wound capsule. The specimen was sharply dissected off of underlying tissue. It was passed from the field. The specimen was marked skin anterior, short silk stitch cephalad, long silk stitch laterally. Perfect hemostasis was obtained. The wound was closed with a series of deep dermal inverted 3-0 Vicryl sutures and Dermabond. A field block of 0.5% Marcaine was instilled into the skin and subcutaneous tissues at the wound. A dressing was applied. The patient tolerated the procedure well and was transported to the recovery room extubated and awake. Complications: none Post-operative Condition: stable Disposition: PACU Plan for aftercare: Discharged to home
== END 2025-03-04 12:53 | disposition home or self-care (01) ==
PROVIDERS: Family Provider Family Medicine; PCP Family Medicine; Referring Provider Surgery; Visit Provider Surgery
PROC: (CPT 19301; principal; 2025-03-04 10:00)
DX: C50.912 Malignant neoplasm of unspecified site of left female breast (principal)
CPT/HCPCS: 19301; J1885; J2405; J2704

== ENCOUNTER → 2025-05-16 07:07 | Outpatient (CLI) | payer OTHER, SELFPAY ==
[2025-05-16 07:31] LABS: Add Manual Diff / Slide Review NO; Hematocrit 42.3 % (36-46); Hemoglobin 13.9 g/dL (12.0-16.0); Lymphocytes Absolute Auto 1200 /uL (1100-4500); Mean Corpuscular HGB Conc 32.9 % (30-36); Mean Corpuscular Hemoglobin 31.3 PG (26-34); Mean Corpuscular Volume 95.2 fL (80-100); Platelet Count 163 X10^3/uL (150-400)
[2025-05-16 07:46] LABS: Alanine Aminotransferase 15 IU/L (<35); Albumin 4.0 g/dL (3.5-5.0); Albumin Globulin Ratio 1.4 (1.0-2.8); Alkaline Phosphatase 65 U/L (38-126); Blood Urea Nitrogen 23 mg/dL (7-17); Calcium 9.0 mg/dL (8.4-10.2); Carbon Dioxide 26 mmol/L (22-32); Chloride 106 mmol/L (98-107); Cholesterol 178 mg/dL (140-199); Estimated Glomerular Filt Rate > 60 mL/min (>60); Globulin 2.8 g/dL (1.7-4.1); Glucose 98 mg/dL (70-99); HDL Cholesterol 52 mg/dL (40-60); HEMOLYSIS < 15 (0-50); Potassium 4.2 mmol/L (3.4-5.1); Sodium 137 mmol/L (137-145); Total Protein 6.8 g/dL (6.3-8.2); Triglycerides 116 mg/dL (35-150)
[2025-05-16 08:15] LABS: TSH w/ Reflex to FT4 0.54 uIU/mL (0.47-4.68)
== END ==
PROVIDERS: Family Provider Family Medicine; PCP Family Medicine; Referring Provider Family Medicine; Visit Provider Family Medicine
DX: E78.2 Mixed hyperlipidemia (principal); E03.8 Other specified hypothyroidism; I25.10 Atherosclerotic heart disease of native coronary artery without angina pectoris
CPT/HCPCS: 36415; 80053; 80061; 84443; 85025